=== PATIENT | female | born 1950 | race Two or more races ===

== ENCOUNTER 2023-05-17 09:42 | Emergency (ER) | payer OTHER ==
[~2023-05-17] VITALS: Ht 162.6 cm; Wt 84.4 kg
[2023-05-17] MEDS ORDERED: TOPROL XL50 M1 PO (10:25)
[2023-05-17] MEDS ORDERED: ZETIA10 MG PO (10:25)
[2023-05-17] MEDS ORDERED: COZAAR50 MG PO (10:25)
[2023-05-17] MEDS ORDERED: CRESTOR40 MG PO (10:25)
[2023-05-17 11:23] LABS: HEMATOCRIT 41.9 % (36.0-45.00); MEAN CELL VOLUME 90.1 fL (80.00-100.00); MEAN CORPUSCULAR HEMOGLOBIN 30.1 pg (27.00-32.0); MEAN CORPUSCULAR HGB CONC 33.4 g/dl (32.0-36.0); PLATELET COUNT 198 K/uL (150-450); RED BLOOD COUNT 4.65 M/uL (4.00-6.00); RED CELL DISTRIBUTION WIDTH 13.6 % (11.5-14.5)
[2023-05-17 11:49] LABS: PH,URINE 5.5 (5.0-8.0); URINE APPEARANCE Cloudy; URINE BILIRRUBIN Negative (NEGATIVE); URINE BLOOD Large; URINE COLOR Yellow; URINE GLUCOSE Negative (NEGATIVE); URINE LEUKOCYTE Large; URINE NITRATE Negative; URINE PROTEIN 30 (NEGATIVE); URINE UROBILINOGEN 0.2 E.U./dl
[2023-05-17 11:51] LABS: URINE BACTERIA 537.9 uL (0.0-1933); URINE EPITHELIAL CELLS 8.3 uL (0.0-38.8); URINE RBC 745.4 uL (0.0-20.8); URINE WBC 1698.4 uL (0.0-23.2)
[2023-05-17 12:26] LABS: CALCIUM 9.2 mg/dL (8.5-10.1); CREATININE SERUM 0.73 mg/dL (0.55-1.02); GFR 77.93; POTASSIUM 4.27 mEq/L (3.5-5.1)
== END 2023-05-17 15:56 | disposition home or self-care (01) ==
LOC: ER 09:43
PROVIDERS: Emergency Medicine
DX: N39.0 Urinary tract infection, site not specified (principal); I10 Essential (primary) hypertension; E78.00 Pure hypercholesterolemia, unspecified